=== PATIENT | female | born 1980 | race Two or more races ===

== ENCOUNTER 2022-10-15 20:04 | Emergency (ER) | payer OTHER ==
[~2022-10-15] VITALS: Ht 165.1 cm; Wt 71.7 kg
[~2022-10-15 20:04] MED LIST: DIOVAN HCT; SYNTHROID; TUSSIONEX
[2022-10-15] MEDS ORDERED: FLONASE16 GM (20:33)
[2022-10-15] MEDS ORDERED: XOPENEX HFA15 GM (20:33)
[2022-10-15] MEDS ORDERED: CRESTOR5 MG (20:33)
== END 2022-10-16 02:57 | disposition home or self-care (01) ==
LOC: ER 20:04
DX: M54.89 Other dorsalgia (principal); Z88.8 Allergy status to other drugs, medicaments and biological substances